=== PATIENT | male | born 1995 | race African-American/Black ===

== ENCOUNTER 2025-01-28 00:53 | Emergency (ER) | payer MEDICAID, OTHER ==
[~2025-01-28] VITALS: Ht 165.1 cm; Wt 62.2 kg
--- NOTE | 2025-01-28 01:58 | ED.PDOC ---
Back pain HPI HPI Comments s PT PRESENTS WITH CC OF BACK PAIN X YESTERDAY. PT DENIES ANY INJURY OR INCITING INCIDENT. PT STATES THE PAIN IS MID TO UPPER BACK, NONRADIATING. PATIENT STATES IT HURTS BECAUSE OF A CARRYING MY BACK PACK ALL NIGHT. DENIES ANY PERTINENT MEDICAL HISTORY. RATES PAIN CURRENTLY AT A 9/10. DENIE NUMNESS, WEAKNESS, FEVER, CHILLS, SOB, RANDAL, OR COUGH. DENIES SADDLE ANESTHESIA OR LOSS OF BOWEL BLADDER. Chief Complaint: Back Pain Time Seen by MD: 00:56 Reviewed Notes: Nurses Notes, Medications, Allergies Allergies: Coded Allergies: No Known Drug Allergy (Verified Allergy, Unknown, 01/28/25) Information Source: Patient Mode of Arrival: Ambulatory Past Medical History PAST MEDICAL HISTORY: Denies Surgical History: Denies all surgeries Family History Family History: Unknown Social History Smoker: Non-Smoker Alcohol: Denies ETOH Use Drugs: Denies Drug Use All Other Systems: Reviewed and Negative (SEE HPI) Physical Exam General Appearance: No Apparent Distress, Normal HEENT: Pharynx Normal Neck: Full Range of Motion, Non-Tender Respiratory: Lungs Clear, No Respiratory Distress, Normal Breath Sounds Cardiovascular: No Murmur, Normal Peripheral Pulses, Regular Rate/Rhythm Breast Exam: Deferred Gastrointestinal: Non Tender, Soft Genitalia: Deferred Pelvic: Deferred Rectal: Deferred Extremities: Normal capillary refill, Normal range of motion, No pedal edema Musculoskeletal : Location: Bilateral Extremity Location: Back (Bilateral paraspinal muscles along T4 through T12 tenderness on palpation thoracic and lumbar spine no tenderness along spine without crepitus or step-offs strength sensory motion intact negative straight leg raise bilateral.) Apperance: Normal Neurologic: Alert, No Motor Deficits, Normal Affect, Normal Mood, No Sensory Deficits Cerebellar Function: Normal Reflexes: Normal Skin: Dry, Normal Color, Warm Lymphatic: No Adenopathy Was a procedure done? Was a procedure done?: No Back Pain Differential Dx Differential Diagnosis: Aortic Dissection, Fracture, Musculoskeletal Pain X-Ray, Labs, Meds, VS Vital Signs Date Time Temp Pulse Resp B/P (MAP) Pulse Ox O2 Delivery O2 Flow Rate FiO2 01/28/25 00:54 98.2 86 14 133/86 98 98.2 X-Ray, Labs, Meds, VS Comment THORACIC IMAGING REVIEWED BY THIS PROVIDER NO NOTED ACUTE FRACTURES SUBLUXATIONS OR OSSEOUS LESIONS NO CARDIOPULMONARY FINDINGS. LIKELY MUSCLE STRAIN. TORADOL 60 MG IM AND NORCO REPORTS IMPROVEMENT IN PAIN AND FUNCTION REQUESTING DISCHARGE AT THIS TIME. ADVISED TO TAKE [id number] TYLENOL OR MOTRIN NEEDED FOR THE PAIN PER LABELED DOSING INSTRUCTIONS. ALTERNATE BETWEEN ICE AND HEAT. FOLLOW UP WITH YOUR PCP IN 2-3 DAYS NECESSARY CONSIDER MRI PERSIST. ER RETURN PRECAUTIONS GIVEN PATIENT INDICATES UNDERSTANDING AGREES WITH DISCHARGE PLAN OF CARE. Images Reviewed?: Images reviewed and evaluated by me Time of 1ST Reevaluation: 00:56 Reevaluation 1ST: Unchanged Time of 2ND Reevaluation: 02:03 Reevaluation 2ND: Improved Patient Education/Counseling: Diagnosis, Treatment, Need For Follow Up Family Education/Counseling: No Family Present SEPSIS Sepsis Screen Date sepsis recognized/suspect: Jan 28, 2025 Time Sepsis recognized/suspect: 005 Recent Procedure: No On Antibiotic Therapy: No Respiratory Rate >20: No Heart Rate >90: No Temp<36 C (96.8 F) or >38.3 C: No SBP <90 or MAP <65 mmHG: No New Acute Mental Status Change: No Is the patient on CPAP, BIPAP,: No Physician Orders Spine Thoracic 2view (01/28/25 01:05) Ketorolac Injection (Toradol Injection) (01/28/25 02:00) Hydrocodone-Acet 5/325mg Tab (Modena /32 (01/28/25 02:00) Vital Signs Date Time Temp Pulse Resp B/P (MAP) Pulse Ox O2 Delivery O2 Flow Rate FiO2 01/28/25 00:54 98.2 86 14 133/86 98 98.2 Departure 1 Departure Time of Disposition: 02:02 Impression: Primary Impression: Musculoskeletal pain Additional Impression: Strain of thoracic region Qualified Codes: S29.019A - Strain of muscle and tendon of unspecified wall of thorax, initial encounter Disposition: HOME / SELF CARE / HOMELESS Condition: Stable Discharged With: Self Critical Care Note Critical Care Time?: No Stability Stability form required: MARLIN Dowell Jan 28, 2025 01:58
[2025-01-28 02:02] VITALS: BP 116/79; PULSE 86; RESP 17; TEMP 97.8; O2SAT 98
[2025-01-28] MEDS: HYDROcodone-ACET 5/325MG TAB PO ONE (02:07)
[2025-01-28] MEDS: KETOROLAC TROMETH 60MG/2ML VIAL IM ONE (02:08)
--- NOTE | 2025-01-28 03:14 | DVH ---
INDICATION: mid back pain TECHNIQUE: 3 views of the thoracic spine were obtained. COMPARISON: None FINDINGS: There is no evidence of fracture, subluxation and/or dislocation. No evidence of vertebral fracture, compression deformity or listhesis. No significant spondylotic mikie nge. The imaged ribs and chest contents are unremarkable. IMPRESSION: 1. No radiographic abnormality of the thoracic spine.
== END 2025-01-28 02:18 | disposition home or self-care (01) ==
LOC: ER 00:53
DX: S29.012A Strain of muscle and tendon of back wall of thorax, initial encounter (principal); M54.6 Pain in thoracic spine; X58.XXXA Exposure to other specified factors, initial encounter; Y93.89 Activity, other specified; Y92.89 Other specified places as the place of occurrence of the external cause; Y99.8 Other external cause status
CPT/HCPCS: 72070; 96372; 99283; J1885